=== PATIENT | male | born 1980 | race Caucasian/White ===

== ENCOUNTER 2016-05-18 11:26 | Inpatient (IN) | payer OTHER ==
[~2016-05-18] VITALS: Ht 198.1 cm; Wt 138.4 kg
--- NOTE | ~2016-05-18 | CLPRLASSUM ---
PATIENT: JOSE CANO | | [facility] UNIT #: [id number] | [address] AGE/SEX: 35 M : 76 | [address] | [place] [phone] ADMIT/REG DATE: 05/18/16 | ROOM: [facility] LOC: ADTC | ADTC | Client Problem List/Assessment Summary Date: 05/25/16 Problems identified by the client: continued drug use, relationship problems, not following through with AA/NA Problems identified by significant others: continued drug use Client's Strengths: kind-hearted, a good dad, honest Problem List: Code: T Client does not "reach-out to others for help" and instead resumes using alcohol & drugs. Code: T Client has history of problems in relationships as evidenced by: dependency on opposite sex or controlling parents to feel okay about themselves which is inhibiting recovery and leads to relapse. Code: T Client continually sabotages his lifelong desire to be loved and cared for by keeping relationships shallow and pushing others away via acting out behaviors which contribute to his/her abuse of chemicals. Code: T Client has unresolved guilt and shame issues and needs to work on forgiveness of self to avoid relapse. Code [place]arrow: T: to be addressed during course of treatment O: problem noted, expected to resolve itself with abstinence--specific tx plan not required R: problem noted, will be referred upon discharge PRIMARY COUNSELOR: Raisa Gaines
--- NOTE | ~2016-05-18 | INDIVTXPL2 ---
"PATIENT: JOSE CANO | | [facility] UNIT #: [id number] | [address] AGE/SEX: 35 M : 76 | [address] | [place] [phone] ADMIT/REG DATE: 05/18/16 | ROOM: A.[facility] LOC: ADTC | ADTC | Individualized Treatment Plan DATE:05/25/16 Problem Statement/Issue Identified: Client has history of problems in relationships as evidenced by: dependency on opposite sex to feel okay about themselves which is inhibiting recovery and leads to relapse. Goal: Client is to address his issues with his addiction to females and how they relate to his relapse. Objectives/Activities to achieve goal: 1. Client is to read Addictive Love packet and share with his counselor and selected pages in group. Due Date: 06/04/16 Complete: Incomplete: 2. Client is to read Shame Faced and share how he could relate with his counselor and in group. Due Date: 06/04/16 Complete: Incomplete: 3. Client is to get a temporary sponsor and call him weekly, learning how to reach out. Due Date: on-going Complete: Incomplete: Client Signature Date Counselor Signaure: Date Outcome/Measurement of Progress Towards Goal: Counselor Signature: Date "
--- NOTE | ~2016-05-18 | TXPLANREV ---
"PATIENT: JOSE CANO | | [facility] UNIT #: [id number] | [address] AGE/SEX: 35 M : 76 | [address] | [place] [phone] ADMIT/REG DATE: 05/18/16 | ROOM: [facility] LOC: ADTC | ADTC | Treatment Plan/Staffing Review Date: 06/01/16 Treatment plan was reviewed and determined appropriate as written: Client is currently working on Addictive Love and feelings letters to his mom and sister. Client was assigned an Controlling Anger packet. Treatment plan was reviewed and the following changes/addition/deletions are necessary: Client was assigned a Controling Anger packet and feelings letters Discharge plans were reviewed and determined appropriate as previously documented: Plans for discharge is for client to go to [facility] due to his mother being in the hospital with cancer. Discharge plans were reviewed and determined to be as follows: See above Other pertinent issues discussed during this staffing review include: Client was placed on contract due to being disrespectful to staff by using profanity and raising his voice to her. Staff Present: Isabel Pearson Sue H PRIMARY COUNSELOR: Raisa Gaines Client Signature Counselor Signature Date Time "
--- NOTE | ~2016-05-18 | INDIVTXPL2 ---
PATIENT: JOSE CANO | | [facility] UNIT #: [id number] | [address] AGE/SEX: 35 M : 76 | [address] | [place] [phone] ADMIT/REG DATE: 05/18/16 | ROOM: A.[facility] LOC: ADTC | ADTC | Individualized Treatment Plan DATE: 05/25/16 Problem Statement/Issue Identified: Client does not "reach out to others for help" and instead resumes using alcohol and drugs. Goal: Client is to learn about his drug addiction, identifying consequences of his use and learn how to work a strong AA/NA program of recovery. Objectives/Activities to achieve goal: 1. Client is to fill out Getting Started Packet, learning how his drug use has progressed, and share with his counselors and select pages in group. Due Date: 06/04/16 Complete: Incomplete: 2. Client is to complete Step 1, identifying 15 core values he has compromised by his use of drugs and alcohol and share with his counselor and in group. Due Date: 06/04/16 Complete: Incomplete: 3. Client is to attend NA/AA meetings, ask for and get 5 phone numbers of men in recovery to begin building a support group in the 12 step program. Due Date: on-going Complete: Incomplete: Client Signature Date Counselor Signaure: Date Outcome/Measurement of Progress Towards Goal: Counselor Signature: Date
--- NOTE | ~2016-05-18 | RESCARESUM ---
"PATIENT: JOSE CANO | | [facility] UNIT #: [id number] | [address] AGE/SEX: 35 M : 76 | [address] | [place] [phone] ADMIT/REG DATE: 05/18/16 | ROOM: [facility] LOC: ADTC | ADT | Summary of Residential Care Primary [facility] Date of Admission: 05/18/16 Date of Discharge: 06/11/16 Referral Source: Marina Lopez Primary Care Provider Prior to Admission: None Admitting Diagnosis: F15.20 Stimulant Use Disorder, severe; Cannabis Use Disorder, severe; Discharge Diagnosis: Same as above Goals Achieved: Client verbalized the understanding of the severity of his powerlessness and unmanageability related to his substance use. He practiced identifying and appropriately expressing his feelings. Client began to work on relapse triggers and prevention plan. Continued Obstacles to Sobriety/Relapse Issues: Client's mother while in treatment. Client needs to work a strong program of recovery in order to be successful. Family Issues Addressed: Clients mother and sister had a separate individual therapy session with client to address some problems and work them out in a safe, non-judgemental environment. Y Individual Therapy Y Group Therapy Y Educational Series on Substance Abuse N Parents/Significant Others Attended Family Program N Acute Medical Problems During the Course of Treatment N Transferred to Hospital During the Course of Treatment Y Accepting of Substance Abuse Problem N Non-accepting of Substance Abuse Problem N Required Psychological or Psychiatric Consultation During the Course of Treatment Completed AA Step # 1 During This Level of Care Significant Incidences During Treatment: Clients mother from her cortés with cancer during his stay at residential treatment. Client was also placed on contract due to being disrespectful to staff. Reason For Discharge: y Completed Residential TX Goals and Ready For Next Level of Care N Left Tx Against Medical Advice/Treatment Goals Not Complete N Completed Residential Tx Goals But Refusing Continuing Care Recommendations N Discharged Due to Noncompliance/Treatment Goals not Completed N Discharged Earlier Than Planned Due to: PATIENT: JOSE CANO | | [facility] UNIT #: [id number] | [address] AGE/SEX: 35 M : 76 | [address] | [place] [address] ADMIT/REG DATE: 05/18/16 | ROOM: [facility] LOC: ADTC | ADTC | Summary of Residential Care Continuing Care Plan/Recommendations: N Intensive Partial Care Y Sponsor N Partial Care Y AA Meetings/NA Meetings N Outpatient N Co-dependency Services N Therapeutic Community Y [address] [facility] N Mental Health Therapy N Marriage Counseling N Other Specific Continuing Care Plan: It is recommended that client immediatley check into the [facility] and follow all rules and regulations of the house, 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 PRIMARY COUNSELOR: Raisa Gaines"
--- NOTE | ~2016-05-18 | TXPLANREV ---
"PATIENT: JOSE CANO | | [facility] UNIT #: [id number] | [address] AGE/SEX: 35 M : 76 | [address] | [place] [phone] ADMIT/REG DATE: 05/18/16 | ROOM: [facility] LOC: ADTC | ADTC | Treatment Plan/Staffing Review Date: 06/08/16 Treatment plan was reviewed and determined appropriate as written: Client is continuing to work on his relapse prevention and anger managemnet packet. Treatment plan was reviewed and the following changes/addition/deletions are necessary: None Discharge plans were reviewed and determined appropriate as previously documented: Client will be going to the [facility]. Discharge plans were reviewed and determined to be as follows: Client will be discharged on TuesdayJune 11 and check into the [facility]. Other pertinent issues discussed during this staffing review include: None Staff Present: Karen Espinosa PRIMARY COUNSELOR: Raisa Gaines Client Signature Counselor Signature Date Time "
--- NOTE | 2016-05-18 14:50 | NUR ---
ADMISSION NOTE Client is a 35 y/o, male, referred to treatment by [facility] and brought here today from [facility] by CSU staff. Client had been at the CSU for one day. Client states NKMA and brings medications with him today; these were packaged for storage at the pharmacy. Client states DOC is meth, last used three weeks ago, in the amount of 1.75 gram. Client also states marijuana use up to 2 weeks ago, when client was using 1/8 gram per day. Client resides in [place] with his mom and anticipates family group participation from his mom, sister and son. Client was searched, no contraband found. Rights/Responsibilities: Copy given and explained to client. Signed and accepted by client. Client oriented to physical lay out of the ADTC unit, given Big Book and admission packet. A Pepe was assigned. Roshan NAVARRO)
--- NOTE | 2016-05-18 23:15 | NUR ---
Tech note : client participated in rec by decorating for Micaela. Client went to the alumni meeting and attended an onsite AA meeting. He was checked into his room, seen by the and gave his first intro.
--- NOTE | 2016-05-19 05:21 | NUR ---
Bed note : Client was motionless with eyes closed at all bed checks.
--- NOTE | 2016-05-19 10:14 | NUR ---
Kelvin Notes: Client is working on BB and mtg with twin
--- NOTE | 2016-05-19 12:15 | NUR ---
PEER REVIEW 22:1/1.5 HR: Client and peers participated in peer review. Client did well in expressing & providing appropriate feedback.
--- NOTE | 2016-05-19 12:52 | NUR ---
Education note: Client attended education by [facility]
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
--- NOTE | 2016-05-19 16:17 | NUR ---
Individual Therapy: 1.0 hours, This session focused on orienting the client to how treatment works, how therapy works, rules and regulations of treatment, bed checks, about family education and signed all releases. The initial treatment plan was also reviewed.
--- NOTE | 2016-05-19 16:19 | NUR ---
Family Contact: Clients mother and sister were oriented to how family education works along with visiting hours.
--- NOTE | 2016-05-19 17:19 | NUR ---
SPIRITUaL EDUCATION 1 HR. Today we oriented newcomers and the activity was reading and putting on presentations on portions of TOWARDS SPIRITUALITY.
--- NOTE | 2016-05-19 22:31 | NUR ---
Tech note : Client went for a walk and worked on some crafts. Client celebrated a tech's birthday and attended an onsite NA meeting.
--- NOTE | 2016-05-19 22:44 | NUR ---
SPIRITUaL EDUCATION 1 HR. Today we oriented newcomers and the activity was reading and putting on presentations on portions of TOWARDS SPIRITUALITY.
--- NOTE | 2016-05-20 04:59 | NUR ---
Bed note: Client was moitionless with eyes closed at all bed checks.
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
--- NOTE | 2016-05-20 15:19 | NUR ---
Tech Note: Client attended Spiritual Enrichment in the morning and went for an outdoor walk in the afternoon. Client stated that he is working on Step One and reading the Big Book.
--- NOTE | 2016-05-20 15:53 | NUR ---
Education 1 Hour: Client heard from a recovery speaker who shared his experience, strength and hope.
--- NOTE | 2016-05-20 16:19 | NUR ---
Step education/ Focus was on step 10 "continued to take personal inventory and when we were wrong promply admitted it." Gave them a set of questions to answer on paper and then as a group answered the first 3 and the rest each person shared what they had written. One of the questions was when was the last time I caught myself doing or saying something I did not feel good about? This client participated. He shared about going to [facility] and how he has always looked down on himself.
--- NOTE | 2016-05-20 18:53 | NUR ---
Education: 1 Hour. Clients watched Picking up the Pieces for education.
--- NOTE | 2016-05-20 23:42 | NUR ---
tech note: client went on walk for recreation,participated in Guided Meditation & attended onsite AA meeting. SE: AA.
--- NOTE | 2016-05-21 04:09 | NUR ---
Bed note: Client was moitionless with eyes closed at all bed checks.
--- NOTE | 2016-05-21 12:23 | NUR ---
Group 1.5 Hr Ratio 1:11/Topics today were orientatinmg two new members to group rules and goals, feelings letters anddealing with childhood issues. Client shared how he could relate to what peers were sharing but thought some things shared were too big to forgive.
--- NOTE | 2016-05-21 13:36 | NUR ---
Tech Note: Client went on group walk for recreation. Clt is working on Step 1.
--- NOTE | 2016-05-21 16:10 | NUR ---
Individual Therapy, 1.0 hours, This session focused on reviewing clients BPS and Getting Started Packet. Client was assigned Step 1 and Addictive Love packet along with Dry Drunk book.
--- NOTE | 2016-05-21 23:07 | NUR ---
TECH NOTE: Client participated in reading guidelines, watched tv/movies. attended optional off site AA meeting SE: walk
--- NOTE | 2016-05-22 04:49 | NUR ---
BED NOTE: Client was in bed, motionless with eyes closed all three bed checks.
--- NOTE | 2016-05-22 16:35 | NUR ---
Tech Note: Client is working on Addictive Love pkt and had a visitor.
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
--- NOTE | 2016-05-23 04:23 | NUR ---
Bed Note: Clt lay motionless in bed with eyes closed showing no distress at all bed checks.
--- NOTE | 2016-05-23 16:29 | NUR ---
Tech Note: Client participated in Big Book Study and stated that he is working on, "Healthy Love" and "Dry Drunk." Maxi went for an optional outdoor walk and received visitors.
--- NOTE | 2016-05-23 22:49 | NUR ---
Client attended the A.A.Panel and participated in Community Clean. SE:All Day
--- NOTE | 2016-05-24 04:05 | NUR ---
BED NOTE: Client was in bed, and motionless at all three bed checks.
--- NOTE | 2016-05-24 10:09 | NUR ---
Kelvin notes: Client is working on Love Addiction and mtg with twin
--- NOTE | 2016-05-24 11:30 | NUR ---
AM Group 1.5 hr/ 21:2 Clients all read The Wall an allegory and discussed how it related to the 12 steps/recovery. Each client zuleika and shared their wall.
--- NOTE | 2016-05-24 14:03 | NUR ---
Educational note: Client attended speaker for educationJerry
--- NOTE | 2016-05-24 14:03 | NUR ---
Educational note: Client attended speaker for educationJerry
--- NOTE | 2016-05-24 14:55 | NUR ---
Contact Note: Mehdi's mother Elizabeth called and a family session was set up for Tuesday @ 4:00. Elizabeth would like to let Mehdi know her cancer has returned while Mehdi is in a safe environment.
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
--- NOTE | 2016-05-24 20:41 | NUR ---
Education: 1 Hour. Client attended lecture on "Adult Children of Alcoholics" presented by staff.
--- NOTE | 2016-05-24 23:18 | NUR ---
Tech Note: Client played a game for rec and attended the on unit N.A.Meeting. SE:_Group
--- NOTE | 2016-05-25 04:21 | NUR ---
Bed Note: Client was in bed, and motionless at all three bed checks.
--- NOTE | 2016-05-25 13:20 | NUR ---
Tech Note: Nutritional Services presented information for the 1:00 speaker meeting. Client is working on Anger Management, Shame Face and Dry Drunk.
--- NOTE | 2016-05-25 14:16 | NUR ---
GROUP 1.5 HRS. 1:10 Clients oriented new peer to purpose and rules of group. Discussion included step 1 assignment and good-bye letter to addiction. This client shared the progression of his disease and experience with relapse.
--- NOTE | 2016-05-25 16:11 | NUR ---
Relapse Prevention, 03/05, 1.0 hours, Client attended and actively participated in relapse prevention education which focused on top 5 relapse triggers and how to avoid them.
--- NOTE | 2016-05-25 17:40 | NUR ---
Education Note: Topic was "Belva From Shame" presented by Carla.
--- NOTE | 2016-05-25 22:55 | NUR ---
TECH NOTE: Client did crafts/beads for REC and attended on site AA meeting. SE: group
--- NOTE | 2016-05-26 04:03 | NUR ---
BED NOTE: Client was in bed, motionless with eyes closed all bed checks.
--- NOTE | 2016-05-26 10:48 | NUR ---
Kelvin notes: Client is working on Anger pkt and mtg with twin
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
--- NOTE | 2016-05-26 16:02 | NUR ---
Education 1 Hour: Client watched the video, "Marijuana" by Sami Gill.
--- NOTE | 2016-05-26 17:23 | NUR ---
SPIRITUAL EDUCATION; Client's took TOWARD SPIRITUALITY BOOKS again this week and improved their presentations took on new participants to replace those who weren't here this week, and presented their refined skits to those staff available to watch. Excellent presentations!
--- NOTE | 2016-05-26 17:27 | NUR ---
Medication Note: Client took prn ibuprophen for H/A rated at 10.
--- NOTE | 2016-05-26 18:00 | NUR ---
Tech Note: Client was weeping during supper, stated that he had received bad bad news regarding the health of a family member.
--- NOTE | 2016-05-26 19:08 | NUR ---
Education 1HR: Clt attended lecture given by counselor on boundaries.
--- NOTE | 2016-05-26 19:08 | NUR ---
Education 1HR: Clt attended lecture given by counselor on boundaries.
--- NOTE | 2016-05-26 22:41 | NUR ---
Tech note : Client went for a long walk for rec and attended an onsite NA meeting. SE: Seeing mother
--- NOTE | 2016-05-27 04:10 | NUR ---
Bed note: Client was in bed motionless, with eyes closed at all bed checks.
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
--- NOTE | 2016-05-27 15:37 | NUR ---
Tech Note: Client participated in Spiritual Enrichment in the morning and went for an outdoor walk in the afternoon. Client stated that he is working on, "Mental Health," "Anger Management" and "Shame-Faced."
--- NOTE | 2016-05-27 15:44 | NUR ---
Education 1 Hour: Client watched the video, "Doing a 4th and 5th Step" by Scott Us.
--- NOTE | 2016-05-27 15:59 | NUR ---
Step education/1 hr/ Focus was on step 11 Sought through prayer and meditation to improve conscious contact with God,praying for his will for us and the power to carry that out. Each person completed a set of questions then we discussed. This person participated.
--- NOTE | 2016-05-27 19:14 | NUR ---
Education 1HR: Clt watched half of video "Pleasures Unwoven" with staff present.
--- NOTE | 2016-05-27 23:18 | NUR ---
Tech note: Clt played a game for rec, attended GM and onsite AA mtg. Smokes dropped off by brother. SE was grp.
--- NOTE | 2016-05-28 04:29 | NUR ---
Bed Note: Clt lay motionless in bed with eyes closed showing no distress at all bed checks.
--- NOTE | 2016-05-28 13:00 | NUR ---
PEER REVIEWS 1 HR: Clt participated in peer reviews and took a risk to give open and honest feedback to those receiving a review.
--- NOTE | 2016-05-28 13:12 | NUR ---
Tech Note: Client is working on Shame Face.
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
--- NOTE | 2016-05-28 13:58 | HP ---
ADMIT: 05/18/2016 RM/LOC: [facility] MR#: [id number] [address] [facility] [address] [place] [id number] [place] [id number] History and Physical SEX: M AGE: 35 : 1980 DATE OF SERVICE: CHIEF COMPLAINT: Drug addiction with recent heavy use of methamphetamine. CLINICAL HISTORY: The patient is a 35-year-old white male, admitted to the residential care program at the [facility] for treatment of his cannabis use disorder as well as stimulant use disorder. The patient comes to treatment after having been admitted to the [facility] Behavioral Service Unit on 05/05/2016, admitted there after presenting to their ER with an abscess of his left thumb. While there, he reported suicidal thoughts and a suicidal plan of overdosing on methamphetamine. For that reason, he was at [facility] from 05/05/2016 through 05/17/2016. He was then transferred to the [facility] for one day and then transferred from the [facility] to the [facility] for admission on 05/18/2016. He readily admits that he is an addict, noting that this is his 8th or 9th time in treatment. The patient notes his last admission here to the [facility] was in September of 2013. He was in treatment from 10/11/2013 through 11/07/2013. He completed treatment and was sober then for only about 2 weeks before relapsing. He has been using heavily off and on for the last 2-1/2 years. Note that this is at least his 4th admission to the [facility] here. He also has been in treatment programs at [facility] in [place], [place], on one occasion. He also did treatment while he was in half-way on one occasion. He has had admissions here documented in the old records in 2000 at the age of 19, in 2009 at the age of 28, and in 2013 at the age of 33. As noted, he readily admits that he is an addict. His drug of choice is methamphetamine. He first started using meth at age 17. He either smokes it or uses it IV. IV is his preferred method of use. When using, he will typically use a gram a day up to as much as an 8 ball per day if he has quantity to use. When using, he notes he stays up for sometimes weeks at a time. He notes the longest he has ever stayed up was 31 days. The patient notes that his second drug of choice is marijuana. He has been smoking pot since age 17. He typically is a daily user, going through about an 8th of an ounce per day. In addition to the meth and pot, he notes he occasionally will drink but really does not care much for alcohol, may drink a beer every now and then once or twice a year at the most. He much prefers drugs over alcohol. He does admit to having used some cocaine when he was in his early 20s. He also experimented with hallucinogens including mushrooms and acid while he was in his 20s. He has abused prescription drugs in the past, primarily the opiates, OxyContin, and methadone, usually uses those to try and come down or smooth out the effects from the heavy methamphetamine use. He notes he has not used any opiates in the last 4 years. His drug use has led to him being in half-way on one occasion. He currently has no legal charges pending. He notes his ongoing drug use has led to his current marital problems and is presently from his . He comes to treatment voluntarily at this time following his recent psychiatric hospitalization. PAST MEDICAL HISTORY: PREVIOUS HOSPITALIZATIONS: As already noted, he has been here at the treatment program on at least three previous occasions, this is either his 4th or 5th time here having been at the treatment program in 2000, 2009, and in 2013. He also had his recent admission to [facility] ADMIT: 05/18/2016 RM/LOC: [facility] MR#: [id number] [address] [id number] [place] [address] History and Physical SEX: M AGE: 35 : 1980 Behavioral Service Unit from 05/05/2016 through 05/17/2016. His only other hospitalization was as a child at around age 8 when he had an appendectomy. PREVIOUS OPERATIONS: Appendectomy at age 8. MEDICAL ILLNESSES: No chronic health problems that he is aware of. The patient did sustain a laceration to his left thumb and has had chronic cellulitis and abscess in the distal tip of his thumb for the past 3-4 weeks that he has been dealing with. Just got off some antibiotics while he was confined for Psych evaluation at [facility]. Still having swelling and pain in his thumb. He has had a couple of ER visits for this thumb as well, where they removed shards of broken glass. Other than for his current issue with his thumb, he has no other chronic medical problems that he is aware of. He is noted to be a smoker, typically smokes a pack a day but denies any chronic respiratory symptoms. CURRENT MEDICATIONS: The patient notes that while he was hospitalized at [facility], he was started on psychotropic medications. 1. Currently, he is on Depakote ER 500 mg three tablets once daily. 2. He also takes Atarax 50 mg one every 6-8 hours for anxiety. ALLERGIES: NONE KNOWN. REVIEW OF SYSTEMS: A 12-point review of systems is otherwise negative. SOCIAL HISTORY: The patient had been for 2 years. He is currently from his . He notes since their separation, he had been living with his mother in [place]. He notes he has been unemployed for the last 6 months or longer because he has been using so heavily. 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 FAMILY HISTORY: He notes his parents when he was age 5. He notes there is a strong history of alcoholism on both sides of the family. He notes his mother is an alcoholic. He notes he has an older sister, age 42, who has no substance abuse issues. Remainder of his family history is negative. PHYSICAL EXAMINATION: VITAL SIGNS: Temp is 97.4, pulse 90, respirations 18, blood pressure 153/97. Height is 6 feet 6 inches, weight is 303 pounds. GENERAL: The patient is a 35-year-old white male, who appears his stated age. He is in no acute distress. He is oriented x3. Pleasant and cooperative. HEENT: At this time is unremarkable. Dentition is in poor repair. Pupils are equal and reactive. Sclerae nonicteric. Conjunctivae noninflamed. Nose and throat noninflamed. NECK: Supple. No cervical adenopathy. Thyroid not enlarged. LUNGS: Noted to be clear. HEART: Regular rhythm without murmur. ABDOMEN: Obese, soft, nontender. No hepatosplenomegaly. No hernias. ADMIT: 05/18/2016 RM/LOC: A.[facility] MR#: [id number] [address] [place] [id number] [place] [address] History and Physical SEX: M AGE: 35 : 1980 GENITALIA: Normal male. EXTREMITIES: Normal to gross exam. No clubbing or cyanosis. No significant peripheral edema. NEUROLOGICAL: He is intact. He has no focal deficits. Balance and gait are normal. Cranial nerves II through XII are grossly intact. INTEGUMENT: Do note that his left thumb is swollen, inflamed, and he has an open ulcerated area on the distal pad of his thumb. There is no purulent drainage, but it is bruised and discolored and has evidence of residual cellulitis. No other significant skin lesions noted. ASSESSMENT AT THE TIME OF ADMISSION: 1. Stimulant use disorder, severe/methamphetamine use disorder, severe. 2. Cannabis use disorder, severe. 3. Chemical-induced mood disorder. 4. Substance-induced mood disorder. 5. High risk for blood-borne pathogens due to IV drug use. 6. Abscess and cellulitis of the distal tip of the left thumb. PLAN: Plan is to admit the patient to the residential care program with a tentative discharge date of 06/15/2016. Upon completion of treatment. The patient needs to go to a [facility], will need the structure and support of a sober living community. We will continue him on the mood stabilizer medication instituted while at [facility]. The patient does feel that the Depakote ER that he is currently taking has helped significantly stabilize his mood, we will continue on that for the present time. He will obviously need an ongoing mental health counseling after completion of the treatment program. Also, as noted, plan upon completion of treatment is referral to a [facility]. Bala Ni MD/ lady JOB #: [id number] CC: Bala Ni, Attending Physician FAMILY PHYSICIAN, Family Physician
--- NOTE | 2016-05-28 20:00 | NUR ---
Family Therapy, 1.0 hours, This session focused on clients relationship with his son. Client shared with his son that he wants to be a better dad and that he is sorry for his addiction. Son was able to talk to dad about things that have bothered him and things he needs from dad. Client stated that this was the first time that he could talk to his son where he was not yelling or leaving because he was mad.
--- NOTE | 2016-05-28 22:46 | NUR ---
Tech note : Client watched movies, played games with peers and walked to an offsite AA meeting.
--- NOTE | 2016-05-29 04:10 | NUR ---
Bed note: Client was in bed with eyes closed and no distress at all bed checks.
--- NOTE | 2016-05-29 16:43 | NUR ---
Tech Note: Client attended N.A.Panel and is working on ShameFace/BB.
--- NOTE | 2016-05-29 22:23 | NUR ---
Tech note : Client worked on [employer], [employer] or watched sports for rec this evening. Client walked to an offsite AA meeting.
--- NOTE | 2016-05-30 04:10 | NUR ---
Bed note: Client was in bed with eyes closed with no distress at all bed checks
--- NOTE | 2016-05-30 17:16 | NUR ---
Tech Note: Client attended cheondoism in the morning and received a visit in the afternoon. Client stated that he is working on, "Shame Faced."
--- NOTE | 2016-05-30 23:24 | NUR ---
tech note: Client attended onsite AA Panel & FAMILY DEVELOPMENT EXTENSION SPECIALIST meeting.Client participated in Community Clean & talked on the phone. SE: Micaela Lambert
--- NOTE | 2016-05-31 04:36 | NUR ---
tech note: client was motionless in no distress at all bed checks.
--- NOTE | 2016-05-31 10:22 | NUR ---
Tech Notes: Client is working on Shame Face & Anger pkt and mtg with twin
--- NOTE | 2016-05-31 11:05 | NUR ---
Education Note: Client watched video for education today.
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
--- NOTE | 2016-05-31 19:18 | NUR ---
Education: 1 Hour. Client attended "Communications" lecture presented by staff.
--- NOTE | 2016-05-31 23:39 | NUR ---
Client attended N.A.Meeting and went on a walk for rec. SE: EMDR with counselor
--- NOTE | 2016-06-01 04:24 | NUR ---
Bed note: Client was in bed with eyes closed with no distress at all bed checks
--- NOTE | 2016-06-01 16:01 | NUR ---
Tech Note: Client participated in light stretching for monring exercise and went for an outdoor walk in the afternoon. Client stated that he is working on, "Shame Faced."
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
--- NOTE | 2016-06-01 17:07 | NUR ---
Relapse Prevention, 03/05, 1.0 hours, Client attended and actively participated in relapse prevention education which focused on high risk situations.
--- NOTE | 2016-06-01 19:25 | NUR ---
Tech note client had a temporary pass to go [facility] to visit with his mom. He was not in 1pm education
--- NOTE | 2016-06-01 19:35 | NUR ---
education note: 1 hour lecture by [facility] on hiv/aid/std. plus clients wwere tested for HIV.
--- NOTE | 2016-06-01 22:35 | NUR ---
Tech note: Client went for a long walk for rec, participated in guided meditation and attended an onsite AA meeting.
--- NOTE | 2016-06-02 05:36 | NUR ---
Bed note : Client was in bed with eyes closed and no movement at all bed checks.
--- NOTE | 2016-06-02 11:30 | NUR ---
GROUP 1.5 HRS. 1:10 Clients oriented new peer to purpose and rules of group. Peers processed from HOW TO GET STARTED IN TREATMENT and step 1 assignments to identify betraying values and effects on others. This client offered appropriate feedback.
--- NOTE | 2016-06-02 13:51 | NUR ---
Tech Note: Outside speaker Marko Whitaker spoke at 1300. Client attended and is working on Shame Face and the Big Book.
--- NOTE | 2016-06-02 17:29 | NUR ---
SPIRITUAL EDUCATION 1 HR. Topics today were clarifying the differences between spirituality and anabaptist, and playing the spiritual challenge game where they are asked thought provoking open ended questions. It is meant to inspire spiritual line of thought.
--- NOTE | 2016-06-02 22:44 | NUR ---
Tech Note : Client participated in rec by playing catch phrase and attended an onsite NA meeting. He had a note left by counselor to call his mother. His father informed him that they were moving her to ICU and things did not look good. We talked for quite and he decided to stay for now.
--- NOTE | 2016-06-02 23:40 | NUR ---
Education: 1 Hour. Client attended "Disease Concept" presented by counselor.
--- NOTE | 2016-06-03 03:33 | NUR ---
addy note: Client's sister called the unit to notify her brother that he needs to come to the hospital. Tech called statistical programmer @ [phone] & was told by statistical programmer client could have a temporary pass till 8 am the following morning. Client left the unit @ 0035 when his ride arrived.
--- NOTE | 2016-06-03 05:38 | NUR ---
Bed note: Client was in bed with eyes closed and motionless when I woke him at midnight to go to the hospital, due to mothers illness.
--- NOTE | 2016-06-03 13:30 | NUR ---
PEER REVIEWS 1.5 HR: Clt participated in peer reviews and took a risk to give open and honest feedback to those receiving a review. The last half hour of group clients talked about loved ones and dying.
--- NOTE | 2016-06-03 15:25 | NUR ---
Tech Note: Client returned to the unit prior to 0800 from his mother's hospital bedside. Client later received a phone call from his sister, the on duty counselor gave permission for him to return that call and later to call his biological father.
--- NOTE | 2016-06-03 15:48 | NUR ---
Education 1 Hour: Client heard from a member of the recovery community who shared his experience, strength and hope.
--- NOTE | 2016-06-03 19:43 | NUR ---
Tech note: client was off the unit for [employer] banquet and speaker event
--- NOTE | 2016-06-04 12:57 | NUR ---
Group 1.5 Hr Ratio 1:10/Topics today were orientating a new member to group rules and goals, a GS packet and a getting started packet. Client shared how he could relate to what peers were sharing from issues and assignments. He is also wondering how to stay sober for his self now that his mom has .
--- NOTE | 2016-06-04 13:56 | NUR ---
Tech Note: Client went with group on an outdoor walk. Client is working on the Big Book.
--- NOTE | 2016-06-04 16:01 | NUR ---
Education Note: Client watched "How to Sabotage Your Treatment"
--- NOTE | 2016-06-04 22:58 | NUR ---
TECH NOTE: Client participated in reading [employer], watched tv/movies. SE: talk to mom, praying
--- NOTE | 2016-06-05 04:06 | NUR ---
Bed Note: Clt lay motionless in bed with eyes closed showing no distress at all bed checks.
--- NOTE | 2016-06-05 15:20 | NUR ---
Tech Note: Client is working on the [employer] and had visitors.
--- NOTE | 2016-06-05 22:56 | NUR ---
TECH NOTE: Client played a game for REC, attended off site AA meeting, watched TV/movies SE: visits
--- NOTE | 2016-06-06 04:49 | NUR ---
Bed Note: Clt lay motionless in bed with eyes closed showing no distress at all bed checks.
--- NOTE | 2016-06-06 15:23 | NUR ---
Tech Note: Client participated in Big Book and stated that he is working on reading the Big Book. Client attended jehovah's witness and received a visitor.
--- NOTE | 2016-06-06 22:57 | NUR ---
Tech Note: Client attended A.A.Panel and participated in community clean. Client also attended the WEB PROGRAMMER Meeting. SE:Speaking with Jaime after the WEB PROGRAMMER meeting
--- NOTE | 2016-06-07 04:52 | NUR ---
Bed Note: Client was motionless with eyes closed at all bed checks.
--- NOTE | 2016-06-07 10:22 | NUR ---
Tech notes: Client is working on BB
--- NOTE | 2016-06-07 12:00 | NUR ---
Individual Therapy, 1.0 hours, This session focused on the of his mother and how he has been handling the situation. Client has decided to go to a [facility] so he completed all the release forms he needed to and the applications for the [address] [facility]. They were faxed and he is awaiting a screening from the [facility].
--- NOTE | 2016-06-07 15:41 | NUR ---
Morning Group, 1.5 hours, 04/06 Clients all participated in 2 family sculptures with role-playing, feedback, and how they related.
--- NOTE | 2016-06-07 16:06 | NUR ---
RECOVERY EDUCATION 1 HR. Todays topic was on denial; good, bad, and levels, life problems being 85 percent of recovery, and distorted thinking patterns that can keep us stuck.
--- NOTE | 2016-06-07 16:31 | NUR ---
Education note: Client watched video "[address]mare on [address]"
--- NOTE | 2016-06-07 18:43 | NUR ---
Education: 1 Hour. Client attended "Feelings" lecture given by staff.
--- NOTE | 2016-06-07 22:11 | NUR ---
Tech note: Client participated in rec by playing [employer] outside. Client attended an onsite NA meeting.
--- NOTE | 2016-06-08 04:16 | NUR ---
BED NOTE: client was in bed, motionless with eyes closed all three bed checks.
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
--- NOTE | 2016-06-08 16:15 | NUR ---
Relapse Prevention, 03/03 ratio, 1.0 hours, Client attended and actively participated in relapse prevention education which focused on personal reactions to high risk situtations such as personal reactions vs. personal responses, addictive thinking, irresponsible thinking, addictive behavior, irresponsible behavior, instant gratification, and emotional consequences to thoughts and actions.
--- NOTE | 2016-06-08 16:35 | NUR ---
Tech Note: Client listened to speaker Joni share his experience, strength and hope. Client is working on the Big Book.
--- NOTE | 2016-06-08 19:32 | NUR ---
Education : 1 hour lecture given by counselor on feelings.
--- NOTE | 2016-06-08 22:16 | NUR ---
Tech note: Client played catchphrase for rec, participated in guided meditation and attended AA meeting. SE:going to [facility]
--- NOTE | 2016-06-09 04:24 | NUR ---
Bed note: client was in bed with eyes closed and no distress at all bed checks.
--- NOTE | 2016-06-09 10:04 | NUR ---
Tech notes: Client is working on Relapse prevention
--- NOTE | 2016-06-09 12:07 | NUR ---
AM GROUP 10:1/1.5 HR: Client and peers participated in the ORIENTATION OF TWO NEW PEERS TO GROUP GUIDELINES, GOALS AND OBJECTIVES. All were involved as three group members processed their work from assignments. Multiple members related, several shared from their own experiences providing support and encouragement. This client was active with personal sharing, feedback and support. When a new male peer suggested that client is not dealing with his mother's deal and letting feelings out, client appropriately corrected him stating that he sees his counselor almost every day and knows that he can talk to any one of the counselors on staff.
--- NOTE | 2016-06-09 13:30 | NUR ---
Education note: Client watched video
--- NOTE | 2016-06-09 16:22 | NUR ---
SPIRITUAL EDUCATION 1 HR. Todays topic was the ADDICTIVE SELF vs. SPIRITUAL SELF. We held discussion on who we are in our addiction vs who we are in recovery and contrasted the two. This client helped me bring in and return the art supplies, and has the last two educations.
--- NOTE | 2016-06-09 18:33 | NUR ---
Education: 1 hour lecture on self esteem given by counselor
--- NOTE | 2016-06-09 22:49 | NUR ---
Client did beads for rec and attended N.A.Meeting. SE: All Day
--- NOTE | 2016-06-10 04:00 | NUR ---
Bed note: client was in bed with eyes closed and no distress at all bed checks.
--- NOTE | 2016-06-10 11:55 | NUR ---
Group 1.5 Hr Ratio 1:10/Topics today were a Getting Started packet, a Relapse prevention and a Self worth packet. Client shared his relapse prevention packet and identified not using his tools as his biggest relapse trigger.
--- NOTE | 2016-06-10 15:27 | NUR ---
Tech Note: Client participated in Spiritual Enrichment in the morning and went for an outdoor walk after lunch. Client stated that he is working on, "Gratitude."
--- NOTE | 2016-06-10 16:16 | NUR ---
Education 1 Hour: Client heard a presentation on cross addiction.
--- NOTE | 2016-06-10 16:25 | NUR ---
Step ed. 1 hr/ focus was on step one and powerlessness. Each person answered a set of questions on paper and then we discussed out loud. This client participated.
--- NOTE | 2016-06-10 23:12 | NUR ---
TECH NOTE: Client did newcommer bookmarks for REC, participated in guided meditation, and attended AA meeting. SE: afternoon education speaker
--- NOTE | 2016-06-11 01:21 | NUR ---
1 HR EDUCATION: Client watched a video "Say Yes to Life" by Father Danny Guadalupe
--- NOTE | 2016-06-11 04:42 | NUR ---
Bed Note: CLt lay motionless in bed with eyes closed showing no distress at all bed checks.
--- NOTE | 2016-06-11 09:00 | NUR ---
Individual Therapy, 1.0 hours, This session focused on reviewing clients recovery maintenance packet and his last feelings letter. Client was given his token for completing treatment and he shared what his plans were after finishing his aftercare at the [facility].
--- NOTE | 2016-06-11 09:59 | NUR ---
Discharge Note: Clt was discharged with all personal property and medications. After Care Instructions were explained and signed. [facility] staff picked up.
--- NOTE | 2016-07-19 12:53 | DS ---
ADMIT: 05/18/2016 RM/LOC: [facility] MR#: [id number] [facility] [address] [id number] JOSE CANO [address] [place] [address] [id number] General Discharge Summary SEX: M AGE: 35 : 1980 ADMISSION DATE: 05/18/2016 DISCHARGE DATE: 06/11/2016 ADMITTING DIAGNOSIS: As per history and physical. FINAL DIAGNOSIS: 1. Stimulant/methamphetamine use disorder, severe. 2. Cannabis use disorder, severe. 3. Chemical-induced mood disorder. 4. High risk for blood-borne pathogens due to long-term IV drug use. 5. Abscess and cellulitis of the distal tip of his left thumb, status post prior incision and drainage. COMPLICATIONS: None. OPERATIONS: None. CLINICAL HISTORY: The patient is a 35-year-old white male, admitted to the residential care program at the [facility] for treatment of his cannabis use disorder, as well as his stimulant use disorder. The patient referred to treatment at the [facility] after having been recently admitted to [facility] on 05/05/2016, was at [facility] from 05/05/2016 until his admission here on 05/18/2016. For details of his clinical history and his ongoing problems with his long-term substance abuse and chemical dependency, please see dictated history and physical. Please also see dictated history and physical for past medical history and pertinent physical exam findings. LABORATORY AND X-RAY SUMMARY: Laboratory did include a chronic hepatitis C antibody, which was negative. HOSPITAL COURSE: The patient was admitted to the residential care program and assigned to his primary counselor, Raisa Gaines. He remained in treatment from 05/18/2016 through 06/11/2016. While in treatment, he participated in individual therapy and group therapy. He was also given the educational series on substance abuse. While in treatment, he was accepting of his substance abuse problem and worked well with the staff in both individual and group sessions. While in treatment, he attended the family education and family group sessions. His mother and sister each participated in an individual session with him as well. While in treatment, he was able to complete step 1 of AA during this level of care. He verbalized a better understanding of the severity of his chemical dependency and recognized his powerlessness over drugs and alcohol. He was also able to recognize the unmanageability of his life related to his substance abuse. He worked on identifying relapse triggers and worked on developing his own personal relapse prevention plan. While in treatment, the patient's mother from her cortés with cancer during his stay at the residential treatment program, which had a significant impact on him. At one point, he did have to be placed on a contract due to his being disrespectful to staff. He ultimately ADMIT: 05/18/2016 RM/LOC: [id number] MR#: [id number] [address] [place] [id number] JOSE CANO [address] [place] [address] General Discharge Summary SEX: M AGE: 35 : 1980 completed his residential treatment goals and was felt to be ready for the next level of care. It was recommended that he go to a shelter house. A bed was available at discharge, and he was to go directly from the treatment program to the [facility] and then reside there for 6 to 9 months until dismissed with staff approval. He is to seek full-time of employment, he is to attend 3 to 5 AA or NA meetings per week and maintain daily contact with his sponsor and try to work a strong program of recovery. DISCHARGE MEDICATIONS: His medications at dismissal included; 1. Depakote ER 500 mg three tablets once daily at bedtime. 2. He also is to continue the Bactroban ointment and Epsom salts soak for his abscess of left thumb. DISCHARGE INSTRUCTIONS: Arrangements were made for him to follow up with [facility] on his psychotropic medications. CONDITION AT DISCHARGE: Improved. PROGNOSIS: Dependent upon his willingness to remain in the shelter house for extended aftercare recovery. Bala Ni MD/ lady JOB #: [id number] CC: Bala Ni MD, Attending Physician NO FAMILY PHYSICIAN, Family Physician
== END 2016-06-11 10:02 | disposition home or self-care (01) | DRG 895 ==
LOC: ADTC 13:14
PROVIDERS: ADMIT Family Medicine
PROC: HZ34ZZZ Individual Counseling for Substance Abuse Treatment, Interpersonal (ICD-10-PCS; principal; 2016-05-18)
PROC: HZ63ZZZ Family Counseling for Substance Abuse Treatment (ICD-10-PCS; principal; 2016-05-18)
PROC: HZ43ZZZ Group Counseling for Substance Abuse Treatment, 12-Step (ICD-10-PCS; principal; 2016-05-18)
DX: F15.20 Other stimulant dependence, uncomplicated (principal); F19.24 Other psychoactive substance dependence with psychoactive substance-induced mood disorder; L02.512 Cutaneous abscess of left hand; F12.20 Cannabis dependence, uncomplicated; L03.012 Cellulitis of left finger; F41.9 Anxiety disorder, unspecified; Z72.89 Other problems related to lifestyle; Z81.1 Family history of alcohol abuse and dependence; Z56.0 Unemployment, unspecified